=== PATIENT | male | born 1960 | race African-American/Black ===

== ENCOUNTER 2025-01-18 14:52 | Emergency (ER) | payer MEDICARE ==
[~2025-01-18] VITALS: Ht 172.7 cm; Wt 81.6 kg
[2025-01-18 14:54] VITALS: BP 128/64; TEMP 98.4; O2SAT 93
== END 2025-01-18 17:03 ==
LOC: ER 14:55
DX: M79.604 Pain in right leg (principal); I11.0 Hypertensive heart disease with heart failure; I50.9 Heart failure, unspecified; I48.91 Unspecified atrial fibrillation; E11.9 Type 2 diabetes mellitus without complications; E78.5 Hyperlipidemia, unspecified; F20.9 Schizophrenia, unspecified; J44.9 Chronic obstructive pulmonary disease, unspecified; Z87.19 Personal history of other diseases of the digestive system
CPT/HCPCS: 72170-TC